=== PATIENT | female | born 1985 | race Caucasian/White ===

== ENCOUNTER 2018-08-17 05:46 | Inpatient (IN) ==
--- NOTE | 2018-08-16 16:16 | History and Physical Report ---
DATE OF ADMISSION: 08/17/2018 ADMITTING DIAGNOSES: 1. Term . 2. Previous section. 3. Maternal drug dependence, Subutex. ADMISSION HISTORY: The patient is a 33-year-old 2, para 1 with an EDC of 21 August by first trimester ultrasound, who is admitted for an elective repeat section. The patient's first was a primary section for failure to progress. She had been counseled about the risks and benefits of a repeat section versus trial of labor and the patient has opted for repeat section. The patient has been followed during this for the use of Subutex. She had a drug screen at 20 weeks gestational age, which was positive for marijuana. The patient is maintained on Subutex 8 mg p.o. b.i.d. PAST MEDICAL HISTORY: OB: As above. 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 MEDICAL: As above. SURGICAL: Cholecystectomy, section. ALLERGIES: AMOXICILLIN. SOCIAL HISTORY: Positive for smoking. FAMILY HISTORY: Noncontributory. REVIEW OF SYSTEMS: As per HPI. ADMISSION PHYSICAL EXAMINATION: GENERAL: Shows a gravid female in no acute distress. VITAL SIGNS: Blood pressure of 126/84 and weight 186 pounds. HEENT: Unremarkable. NECK: Supple. LUNGS: Clear. HEART: With a regular rhythm and rate. ABDOMEN: Gravid, vertex, positive heart tones, estimated weight 7.5 pounds. PELVIC: Showed the cervix to be long, thick and closed. EXTREMITIES: Showed no deep calf tenderness. NEUROLOGIC: Grossly intact. IMPRESSION: A 33-year-old 2, para 1, 39+ weeks gestational age for an elective repeat section. PLAN: Risks, benefits and alternatives to the surgery have been discussed, while benefits will be delivery of the baby, the risks are bleeding, infection, inadvertent injury to bowel or bladder. The patient understands this. The patient understands a drug screen will be performed on admission for her history of Subutex use. All questions answered of the patient. Permit has been signed and she wishes to proceed.
[~2018-08-17 05:46] MED LIST: LACTATED RINGER'S 1,000 ML IV SCH
--- NOTE | 2018-08-17 05:56 | Anesthesiology Consultation ---
Date of Service August 17, 2018 Assessment & Plan Chart Review Chart Review: Acceptable Risk for Surgery and Patient NOT seen in Pre Admission Testing Consults Requested none ASA ASA2 Proposed Anesthesia Anesthesia Type: Spinal Risk / Benefits Reviewed With: PT / POA / Parent / Guardian, Accepts Plan and Informed Consent Obtained NPO Date Last Intake of Fluids: 08/16/18 Time Last Intake of Fluids: 23:30 Date Last Intake of Solids: 08/16/18 Time Last Intake of Solids: 21:00 History Surgery Operation Date: 08/17/18 07:30 Proposed Procedures p Section - Tremaine German Jr, MD, FACOG Height/Weight Height: 1.68 m Weight: 83.915 kg Allergies Allergy/AdvReac Type Severity Reaction Status Date / Time amoxicillin Allergy Mild RASH Verified 07/25/18 14:59 Medications Home Medications Medication Instructions Recorded Confirmed Last Taken 1 tab PO QAM 07/25/18 07/25/18 Unknown buprenorphine-naloxone [Suboxone] 2 film BUCCAL BID 07/25/18 07/25/18 Unknown iron 1 tab PO QAM 07/25/18 07/25/18 Unknown Past Medical History Medical History Anemia GERD (gastroesophageal reflux disease) Kidney stones Denies having any CP, SOB, GERD symptoms, n/v Denies taking any anticoagulant or having h/o major bleeding disorder Past Surgical History Surgical History History of section History of cholecystectomy History of colonoscopy Past Anesthesia History No Hx of Anesthesia Complications and No Family Hx of Anesthesia Complications History of PONV No Motion Sickness Screening History of Motion Sickness: No Social History Smoking Status: Current every day smoker tobacco type: cigarettes Smoking cigarettes per day: 2 CIG PER DAY Do You Dip or Chew Tobacco: No Hx Alcohol Use: No Hx Substance Use: Yes substance use type: former substance user Substance Use Type Other:: History of narcotic use in the past. Has been on sebaxone for 7 years Exercise / Class Metabolic Activity II 4-5 Yardwork/Stairs/Walk up hill Physical Exam Vital Signs Last Vital Signs Temp 36.7 C 08/17/18 05:34 Resp 20 08/17/18 05:34 ENMT Mouth: no TMJ abnormality and no TMJ clicking Thyromental Distance: > or= 3.5 Finger Breadths Mallampati Class: II Neck normal visual inspection; neck extension not limited Respiratory Auscultation: lungs clear to auscultation bilaterally Cardiovascular Rate/Rhythm: regular rate and regular rhythm Musculoskeletal Spine: normal cervical ROM and no pain with cervical ROM Psychiatric Orientation: alert and oriented x 3 Testing Laboratory Results 08/17/18 05:55
[2018-08-17] MEDS ORDERED: CEFAZOLIN 2000MG 2,000 MG/15 ML SYR IV ONE (06:00)
[2018-08-17] MEDS ORDERED: CITRIC ACID/SODIUM CITRATE 15 ML UDC PO SCH (06:00)
[2018-08-17 06:10] LABS: Basophils # (auto) 0.03 K/uL (0-0.2); Basophils % (auto) 0.2 %; Eosinophils # (auto) 0.46 K/uL (0-0.5); Eosinophils % (auto) 3.2 %; Hematocrit (blood only) 31.5 % (37-47); Hemoglobin 10.8 g/dL (12.0-16.0); Immature Granulocytes # (auto) 0.05 K/uL (0.00-0.02); Immature Granulocytes % (auto) 0.4 %; Lymphocytes # (auto) 3.93 K/uL (1.2-3.4); Lymphocytes % (auto) 27.8 %; Mean Corpuscular Volume 89.2 fL (80-100); Mean Platelet Volume 10.4 fL (7.4-10.4); Monocytes % (auto) 9.2 %; Neutrophils # (auto) 8.39 K/uL (1.4-6.5); Neutrophils % (auto) 59.2 %; Platelet Count 280 K/uL (130-400); RDW Coefficient of Variation 13.6 % (11.5-14.5); RDW Standard Deviation 44.3 fL (36.4-46.3); Red Blood Count 3.53 M/uL (4.2-5.4); White Blood Count 14.16 K/uL (4.8-10.8)
[2018-08-17 06:25] LABS: Mean Corpuscular Hgb Conc 34.3 g/dL (32-36)
[2018-08-17] MEDS ORDERED: OXYTOCIN 10 UNITS/ML VIAL ONE ×3 (06:43)
[2018-08-17] MEDS ORDERED: PHENYLEPHRINE 100MCG/ML 5ML SYR IV PRN (06:57)
[2018-08-17] MEDS ORDERED: PROMETHAZINE HCL 12.5 MG in SODIUM CHLORIDE 0.9% 50 ML IV PRN (06:57)
[2018-08-17] MEDS ORDERED: ePHEDrine sulfate 50 MG/ML AMP IV PRN ×2 (06:57→07:39)
[2018-08-17] MEDS ORDERED: ONDANSETRON INJ 2 MG/ML 2 ML VIAL IV PRN (06:57)
[2018-08-17] MEDS ORDERED: ATROPINE SULFATE 0.1 MG/ML 10ML SYR IV PRN (06:57)
[2018-08-17] MEDS ORDERED: fentaNYL citrate 100 MCG/2 ML VIAL IV PRN (06:57)
[2018-08-17] MEDS ORDERED: MoRPHine SULFATE PF 1 MG/ML 10 ML AMP/VIAL ONE (06:58)
[2018-08-17] MEDS ORDERED: fentaNYL citrate 100 MCG/2 ML VIAL ONE (06:58)
--- NOTE | 2018-08-17 07:00 | History & Physical Bridge Note ---
Date of Service August 17, 2018 History & Physical Bridge Note I have examined the patient, reviewed the History & Physical and in the interval since the performance of the History & Physical I have noted the following changes of clinical significance: no changes noted
[2018-08-17] MEDS ORDERED: DiphenhydrAMINE HCL 50 MG/ML VIAL IV PRN ×2 (07:39→08:12)
[2018-08-17] MEDS ORDERED: NALOXONE HCL 0.4 MG/1 ML VIAL/CARP IV PRN (07:39)
[2018-08-17] MEDS ORDERED: NALBUPHINE HCL INJ 10 MG/ML AMP IV PRN (07:39)
[2018-08-17] MEDS ORDERED: MoRPHine SULFATE 2 MG/ML CARP IV PRN (07:39)
[2018-08-17] MEDS ORDERED: NALOXONE HCL 0.08 MG in SYRINGE 1.8 ML IV PRN (07:39)
[2018-08-17] MEDS ORDERED: MoRPHine SULFATE PF 1 MG/ML 10 ML AMP/VIAL INT SPINAL ONE (07:39)
[2018-08-17] MEDS ORDERED: MEPERIDINE HCL 25 MG/ML CARP IV PRN (07:39)
[2018-08-17] MEDS ORDERED: NALOXONE HCL 1 MG in SODIUM CHLORIDE 0.9% 1000ML 1,000 ML IV PRN (07:39)
[2018-08-17] MEDS ORDERED: LACTATED RINGER'S 500 ML IV PRN (07:39)
[2018-08-17] MEDS ORDERED: NO NARCOTICS OR SEDATIVES SCH (07:45)
[2018-08-17] MEDS ORDERED: SODIUM CHLORIDE 0.9% 1000ML 1,000 ML IV SCH (07:45)
[2018-08-17] MEDS ORDERED: DC INTRASPINAL MORPHINE SCH (07:45)
[2018-08-17] MEDS ORDERED: PHENYLEPHRINE HCL 10 MG/ML VIAL ONE (07:57)
[2018-08-17] MEDS ORDERED: ePHEDrine sulfate 50 MG/ML AMP ONE (07:57)
[2018-08-17] MEDS ORDERED: HYDROCORTISONE ACETATE 25 MG SUPP PR PRN (08:12)
[2018-08-17] MEDS ORDERED: DIPHTHERIA/TETANUS/PERTUSSIS 0.5 ML SYR/VIAL IM ONE (08:12)
[2018-08-17] MEDS ORDERED: SUPERCREAM 0.870% 15 GM JAR EXT PRN (08:12)
[2018-08-17] MEDS ORDERED: BENZOCAINE 20% AER SPR 82.5 GM CAN EXT PRN (08:12)
--- NOTE | 2018-08-17 08:18 | Post Operative Brief Note ---
Immediate Post Op Note v1 Date of Surgery August 17, 2018 Pre & Post Diagnosis Operation Date: 08/17/18 07:30 Pre-Op Diagnosis: Term with previous caesarean Section, requests repest caesarean Post-Op Diagnosis: Term with previous caesarean Section, requests repest caesarean Procedure Operation Date: 08/17/18 07:30 <No data on this case meets the specified criteria> Surgeon Tremaine German Jr, MD, FACOG Chalk Tester Larry Shirley Estimated Blood Loss 800 Findings See Below (viable male infant, Apgars 9/9, weight of 7lbs 13ozs; cord gasses pending, normal appearing tubes and ovaries bilaterally) Drains Phan Catheter
[2018-08-17] MEDS: OXYTOCIN 20 UNITS in LACTATED RINGER'S 1,000 ML IV SCH ×2 (08:43→17:21)
[2018-08-17 08:44] LABS: Base Excess Cord Arterial Bld -1.2 mEq/L (-9-1.8); CO2 Cord Arterial Blood 65 mmHg (39.1-73.5); HCO3 Cord Arterial Blood 28 mmol/L (19.7-28.5); pH Cord Arterial Blood 7.25 (7.1-7.38)
[2018-08-17 08:47] LABS: Base Excess Cord Venous Blood -0.2 mEq/L (-7.7-1.9); Cord Venous Blood HCO3 25 mmol/L (18.4-26.8); Cord Venous Blood PCO2 43 mmHg (30.4-57.2); Cord Venous Blood PO2 33 mmHg (14.1-43.3); Cord Venous Blood pH 7.39 (7.20-7.44)
[2018-08-17] MEDS: KETOROLAC 30 MG/ML VIAL IV PRN ×3 (09:55→20:53)
[2018-08-17 10:44] LABS: Amphetamines+Metham, Urine Neg (Neg); Barbiturates, Urine Neg (Neg); Benzodiazepine, Urine Neg (Neg); Cocaine, Urine Neg (Neg); MDMA (Ecstacy), Urine Neg (Neg); Methadone, Urine Neg (Neg); Opiate, Urine Neg (Neg); Phencyclidine, Urine Neg (Neg)
--- NOTE | 2018-08-17 12:25 | Anesthesiology Progress Note ---
Date of Service August 17, 2018 Anesthesia Post Procedure Vital Signs Vital Signs: Temp Pulse Pulse Resp BP BP Pulse Ox 08/17/18 11:00 36.7 C 75 20 130/65 98 08/17/18 10:58 74 100 08/17/18 10:56 67 119/55 L 08/17/18 10:54 68 115/55 L 08/17/18 10:53 76 99 08/17/18 10:48 69 97 08/17/18 10:46 70 113/58 L 08/17/18 10:43 81 99 08/17/18 10:38 67 99 08/17/18 10:36 78 111/61 08/17/18 10:33 75 98 08/17/18 10:28 80 99 08/17/18 10:26 63 106/58 L 08/17/18 10:23 66 99 08/17/18 10:18 62 100 08/17/18 10:16 134 H 117/55 L 08/17/18 10:13 64 99 08/17/18 10:08 67 100 08/17/18 10:06 78 121/60 08/17/18 10:03 77 99 08/17/18 09:58 63 100 08/17/18 09:56 64 106/60 08/17/18 09:53 76 100 08/17/18 09:48 72 100 08/17/18 09:46 80 119/66 08/17/18 09:43 71 100 08/17/18 09:38 81 100 08/17/18 09:36 113 H 107/54 L 08/17/18 09:35 18 08/17/18 09:33 74 99 08/17/18 09:28 69 100 08/17/18 09:27 76 90/35 L 08/17/18 09:25 18 08/17/18 09:23 69 99 08/17/18 09:18 74 99 08/17/18 09:17 90 103/76 08/17/18 09:15 20 08/17/18 09:13 75 99 08/17/18 09:08 73 98 08/17/18 09:06 87 120/71 08/17/18 09:05 18 08/17/18 09:03 83 98 08/17/18 08:58 70 97 08/17/18 08:56 80 124/72 08/17/18 08:55 18 08/17/18 08:53 79 97 08/17/18 08:48 88 97 08/17/18 08:46 84 121/66 08/17/18 08:45 18 08/17/18 08:43 75 97 08/17/18 08:38 92 H 97 08/17/18 08:35 36.4 C L 20 08/17/18 08:33 73 96 08/17/18 08:28 85 129/60 96 08/17/18 07:04 36.6 C 78 20 118/68 08/17/18 05:34 36.7 C 20 Pain Intensity Abdomen: Pain Intensity: 2 Notes Mental Status: alert / awake / arousable Patient Amnestic to Procedure: Yes Nausea / Vomiting: adequately controlled Pain: adequately controlled Airway Patency, RR, SpO2: stable & adequate BP & HR: stable & adequate Neuraxial Anesthesia: was administered and sensory block is resolving Anesthetic Complications: no major complications apparent Notes: Doing well, no complaints. VSS
--- NOTE | 2018-08-17 12:46 | Operative Report ---
DATE OF OPERATION: 08/17/2018 PREOPERATIVE DIAGNOSES: 1. Term . 2. Previous section. 3. Drug use complicating , Subutex. POSTOPERATIVE DIAGNOSES: 1. Term . 2. Previous section. 3. Drug use complicating , Subutex. PROCEDURE PERFORMED: Repeat low cervical transverse section. SURGEON: Tremaine German MD PHERESIS SPECIALIST: Dr. Larry Shirley. ANESTHESIA: Spinal. FINDINGS: Viable male infant with Apgars of 8 and 9, weight of 7 pounds 13 ounces. Arterial and venous cord gases are pending. Normal-appearing tubes and ovaries bilaterally. PROCEDURE IN DETAIL: The patient was taken to the operating room, and after spinal anesthesia, was placed in supine position, draped and prepped in the usual fashion. Pfannenstiel type incision through previous surgical scar was made. Underlying subcutaneous tissue was dissected down to the ventral abdominal fascia, which was nicked and opened in a horizontal manner. Preperitoneal fascia was dissected away until the peritoneal cavity was entered and opened in a vertical manner. Bladder blade was placed and the peritoneum overlying the uterus was elevated, opened in a semi-lunar fashion, the inferior margin of which was taken down creating the bladder flap. The uterus was entered sharply and extended in a semilunar fashion manually, artificial rupture of membranes for clear fluid. Viable male infant was delivered. Cord was clamped and cut. The baby was passed off to pediatrics who was in attendance for the delivery. Cord gases, cord blood samples obtained. Placenta was delivered manually, and the uterus was exteriorized. The uterine cavity was wiped clean of any residual blood tissue and/or clot. The uterine incision was then closed with 2 layers of 4-0 Vicryl, the first a running locking stitch, the second an imbricating stitch. Hemostasis achieved and the uterus was returned to the pelvic cavity. Pericolic gutters were cleared bilaterally of any blood tissue and/or clot. The pelvis was thoroughly irrigated with 1000 mL of warm saline. Uterine incision was inspected for hemostasis again which was present. Sponge and needle count was correct. Rectus muscle was plicated in the midline with a running 2-0 Vicryl stitch. The fascia was closed laterally with a running 0 Vicryl suture. Subcutaneous tissue was irrigated with warm saline and the skin incision was closed with a 4-0 Monocryl subcuticular suture. Sterile dressing was applied. The patient was taken to the recovery room in satisfactory condition. I attest to the content of the Intraoperative Record and any orders documented therein. Any exception s are noted below.
[2018-08-17] MEDS: SIMETHICONE 80 MG CHEW PO SCH ×2 (17:23→20:54)
[2018-08-17] MEDS: BUPRENORPHINE HCL 8 MG SUBL SL SCH (21:00)
[2018-08-18] MEDS ORDERED: KETOROLAC 30 MG/ML VIAL IV PRN (01:40)
[2018-08-18] MEDS ORDERED: DiphenhydrAMINE HCL 50 MG/ML VIAL IV PRN (01:40)
[2018-08-18] MEDS ORDERED: ONDANSETRON INJ 2 MG/ML 2 ML VIAL IV PRN (01:40)
--- NOTE | 2018-08-18 06:52 | Obstetrical Progress Note ---
Date of Service <Mukund Shirley - Last Filed: 08/18/18 06:52> August 18, 2018 Assessment & Plan <Mukund ShirleyDO - Last Filed: 08/18/18 06:52> (1) delivery delivered: 33 y/o who had scheduled repeat @39.3 weeks. complicated by drug use, on Suboxone for opioid substance abuse treatment and with positive drug test for marijuana. O+, GBS- - POD #1 - guo cath was removed this morning, will monitor for any difficulties with urination, do not anticipate problem - continue with routine post-op/ care, encourage ambulation, encourage . (2) Previous delivery affecting , antepartum: scheduled with delivery at 39.3 weeks gestation (3) Drug use complicating : - social service liaison consult placed because of positive urine drug screen in for marijuana; is also on Suboxone for treatment of opioid substance abuse - continue with home medication dose of Suboxone 8mg BID - urine drug screen was ordered on admission and was negative. Subjective <Mukund ShirleyDO - Last Filed: 08/18/18 06:52> Passing Gas:: Yes Diet Tolerance:: regular diet Feeding Type:: breast feeding Jeannette states she is doing well this morning. Her pain has been controlled with non-narcotic analgesics. She had her guo cath removed this morning and has not attempted urination yet. She denies fevers, chills, headache, chest pain, shortness of breath, nausea, vomiting. Physical Exam <Mukund Casper - Last Filed: 08/18/18 06:52> Vital Signs (Past 24 Hours) Last Vital Signs Temp 36.5 C 08/18/18 04:30 Pulse 72 08/18/18 04:30 Resp 18 08/18/18 04:30 BP 111/61 08/18/18 04:30 Pulse Ox 99 08/18/18 04:30 Constitutional WD/WN, vitals as above cooperative and comfortable Eyes + anicteric sclerae and EOM intact bilaterally Neck normal visual inspection and trachea midline Respiratory normal respiratory effort, lungs clear to auscultation Cardiovascular Rate/Rhythm: regular rate and regular rhythm Heart Sounds: no murmur Gastrointestinal (Abdomen) Percussion/Palpation: abdomen soft; abdomen nontender surgical dressing inplace this morning and removed for examination of surgical incision wound. surgical incision wound is well dry, intact, well healing without erythema, warmth or signs of infection Musculoskeletal Head/Neck/Chest: normocephalic and head atraumatic Skin no rashes, warm and dry Neurologic moves all extremities and awake Psychiatric A+Ox3, euthymic affect Results & Data <Mukund Shirley, DO - Last Filed: 08/18/18 06:52> Laboratory Results Laboratory Results - last 24 hr 08/17/18 08/17/18 08/17/18 05:55 07:52 07:52 Cord ABG pH 7.25 Cord ABG pCO2 65 Cord ABG pO2 14.0 Cord ABG HCO3 28 Cord ABG Base Excess -1.2 Cord ABG O2 Sat < 60.0 Cord VBG pH 7.39 Cord VBG pCO2 43 Cord VBG pO2 33 Cord VBG HCO3 25 Cord VBG Base Excess -0.2 Cord VBG O2 Sat 75.0 H Barometric Pressure 739.9 739.9 Blood Gas Comments A INFANT A Urine Opiates Screen Ur Methadone, Qual Urine Barbiturates Ur Phencyclidine (PCP) U Amphetamin/Meth Scrn MDMA (Ecstasy) Screen U Benzodiazepines Scrn Ur Cocaine Metabolite U Marijuana (THC) Screen Blood Type O Positive Antibody Screen NEGATIVE Direct Antiglob Test SHAWN (IgG-AHG) Baby's Blood Type 08/17/18 08/17/18 07:52 08:24 Cord ABG pH Cord ABG pCO2 Cord ABG pO2 Cord ABG HCO3 Cord ABG Base Excess Cord ABG O2 Sat Cord VBG pH Cord VBG pCO2 Cord VBG pO2 Cord VBG HCO3 Cord VBG Base Excess Cord VBG O2 Sat Barometric Pressure Blood Gas Comments Urine Opiates Screen Neg Ur Methadone, Qual Neg Urine Barbiturates Neg Ur Phencyclidine (PCP) Neg U Amphetamin/Meth Scrn Neg MDMA (Ecstasy) Screen Neg U Benzodiazepines Scrn Neg Ur Cocaine Metabolite Neg U Marijuana (THC) Screen Neg Blood Type Antibody Screen Direct Antiglob Test Cancelled SHAWN (IgG-AHG) Cancelled Baby's Blood Type Cancelled Medications Administered Buprenorphine HCl (Subutex) 8 mg SL BID PRAKASH Stop: 09/16/18 20:59 Last Admin: 08/17/18 21:00 Dose: 8 mg Documented by: [id number] Ketorolac Tromethamine (Toradol) 30 mg IV Q6H PRN PRN Reason: Pain Stop: 08/23/18 01:39 Last Admin: 08/18/18 02:59 Dose: 30 mg Documented by: [id number] Simethicone (Mylicon) 80 mg PO QID PRAKASH Stop: 09/16/18 08:59 Last Admin: 08/17/18 20:54 Dose: 80 mg Documented by: [id number] Admin: 08/17/18 17:23 Dose: 80 mg Documented by: [id number] <Tremaine German Jr, MD, FACOG - Last Filed: 08/18/18 07:26> Co-Signing Physician Notes Resident Physician Supervision Note: I was present with Dr. Shirley during the history and exam. I discussed the case with the resident and agree with the findings and plan as documented in the note. Any exceptions or clarifications are listed here: Discussed surgery and findings with patient. Discussed pain management and will use narcotics as ne eded. Documented By: Tremaine German Jr, MD, FACOG
[2018-08-18 07:21] LABS: Basophils # (auto) 0.02 K/uL (0-0.2); Basophils % (auto) 0.2 %; Eosinophils # (auto) 0.47 K/uL (0-0.5); Eosinophils % (auto) 4.1 %; Hematocrit (blood only) 28.2 % (37-47); Hemoglobin 9.5 g/dL (12.0-16.0); Immature Granulocytes # (auto) 0.03 K/uL (0.00-0.02); Immature Granulocytes % (auto) 0.3 %; Lymphocytes % (auto) 29.9 %; Mean Corpuscular Hgb Conc 33.7 g/dL (32-36); Mean Platelet Volume 10.4 fL (7.4-10.4); Monocytes % (auto) 9.7 %; Neutrophils # (auto) 6.34 K/uL (1.4-6.5); Neutrophils % (auto) 55.8 %; Platelet Count 268 K/uL (130-400); RDW Coefficient of Variation 13.6 % (11.5-14.5); RDW Standard Deviation 44.7 fL (36.4-46.3); Red Blood Count 3.17 M/uL (4.2-5.4); White Blood Count 11.36 K/uL (4.8-10.8)
--- NOTE | 2018-08-18 08:34 | Anesthesiology Progress Note ---
Date of Service August 18, 2018 Pt is s/p C Section .Pt has no c/o H/A,Low back pain,or LE numbness,pain or paresthesias. Pt has been up and ambulating w/o incident. Anesthesia Post Procedure Vital Signs Vital Signs: Temp Pulse Pulse Resp BP BP Pulse Ox 08/18/18 04:30 36.5 C 72 18 111/61 99 08/18/18 01:10 16 97 08/18/18 00:30 16 98 08/17/18 23:25 36.8 C 72 18 110/62 99 08/17/18 21:50 20 98 08/17/18 20:50 20 98 08/17/18 20:00 36.6 C 72 20 129/63 98 08/17/18 18:50 20 98 08/17/18 15:50 36.8 C 67 20 103/58 L 98 08/17/18 14:00 18 98 08/17/18 13:00 20 98 08/17/18 12:00 36.6 C 69 18 105/49 L 98 08/17/18 11:00 36.7 C 75 20 130/65 98 08/17/18 10:58 74 100 08/17/18 10:56 67 119/55 L 08/17/18 10:54 68 115/55 L 08/17/18 10:53 76 99 08/17/18 10:48 69 97 08/17/18 10:46 70 113/58 L 08/17/18 10:43 81 99 08/17/18 10:38 67 99 08/17/18 10:36 78 111/61 08/17/18 10:33 75 98 08/17/18 10:28 80 99 08/17/18 10:26 63 106/58 L 08/17/18 10:23 66 99 08/17/18 10:18 62 100 08/17/18 10:16 134 H 117/55 L 08/17/18 10:13 64 99 08/17/18 10:08 67 100 08/17/18 10:06 78 121/60 08/17/18 10:03 77 99 08/17/18 09:58 63 100 08/17/18 09:56 64 106/60 08/17/18 09:53 76 100 08/17/18 09:48 72 100 08/17/18 09:46 80 119/66 08/17/18 09:43 71 100 08/17/18 09:38 81 100 08/17/18 09:36 113 H 107/54 L 08/17/18 09:35 18 08/17/18 09:33 74 99 08/17/18 09:28 69 100 08/17/18 09:27 76 90/35 L 08/17/18 09:25 18 08/17/18 09:23 69 99 08/17/18 09:18 74 99 08/17/18 09:17 90 103/76 08/17/18 09:15 20 08/17/18 09:13 75 99 08/17/18 09:08 73 98 08/17/18 09:06 87 120/71 08/17/18 09:05 18 08/17/18 09:03 83 98 08/17/18 08:58 70 97 08/17/18 08:56 80 124/72 08/17/18 08:55 18 08/17/18 08:53 79 97 08/17/18 08:48 88 97 08/17/18 08:46 84 121/66 08/17/18 08:45 18 08/17/18 08:43 75 97 08/17/18 08:38 92 H 97 08/17/18 08:35 36.4 C L 20 08/17/18 08:33 73 96 Pain Intensity Abdomen: Pain Intensity: 5
[2018-08-18] MEDS: IBUPROFEN 600 MG TAB PO PRN ×4 (08:48→20:49)
[2018-08-18] MEDS: PRENATAL VITAMIN 1 TAB PO SCH (08:49)
[2018-08-18] MEDS: SIMETHICONE 80 MG CHEW PO SCH ×4 (08:49→20:46)
[2018-08-18] MEDS: FERROUS SULFATE 325 MG TAB PO SCH (08:49)
[2018-08-18] MEDS: BUPRENORPHINE HCL 8 MG SUBL SL SCH ×2 (08:57→20:46)
[2018-08-18] MEDS ORDERED: BUPRENORPHINE/NALOXONE 8/2 MG TAB SL SCH (09:00)
[2018-08-18] MEDS: MAGNESIUM HYDROXIDE SUSP 30 ML UDC PO SCH (20:46)
[2018-08-18] MEDS: SENNA 8.6 MG TAB PO SCH (20:46)
[2018-08-19] MEDS: IBUPROFEN 600 MG TAB PO PRN ×5 (04:03→21:39)
[2018-08-19 06:43] LABS: Hematocrit (blood only) 27.2 % (37-47); Hemoglobin 9.3 g/dL (12.0-16.0)
[2018-08-19] MEDS ORDERED: ACETAMINOPHEN 500 MG TAB PO PRN (07:44)
--- NOTE | 2018-08-19 07:47 | Obstetrical Progress Note ---
Date of Service August 19, 2018 Assessment & Plan (1) delivery delivered: POD#2 doing well. For pain, doing ok with motrin. No narcotics ordered per patient request. Continue motrin, subutex. Added tylenol in case patient feels she needs something else. Continue routine postop care. Day #:: 2 Subjective Ambulation: ambulating normally Voiding: no voiding problems Passing Gas:: Yes Diet Tolerance:: regular diet Lochia:: Moderate Feeding Type:: breast feeding Doing well, pain controlled with motrin. Review of Systems All systems reviewed & are unremarkable except as noted in HPI & below Physical Exam Vital Signs (Past 24 Hours) Last Vital Signs Temp 36.7 C 08/19/18 07:40 Pulse 67 08/19/18 07:40 Resp 20 08/19/18 07:40 BP 120/66 08/19/18 07:40 Pulse Ox 100 08/18/18 16:45 Gen: AAOx3 NAD CV: RRR L: CTA Abd: soft, NTTP. Incision CDI Ext: no edema, no calf tenderness
[2018-08-19] MEDS: PRENATAL VITAMIN 1 TAB PO SCH ×2 (08:24→10:11)
[2018-08-19] MEDS: SIMETHICONE 80 MG CHEW PO SCH ×6 (08:25→21:41)
[2018-08-19] MEDS: FERROUS SULFATE 325 MG TAB PO SCH ×2 (08:25→10:10)
[2018-08-19] MEDS: BUPRENORPHINE HCL 8 MG SUBL SL SCH ×2 (08:46→21:39)
[2018-08-19] MEDS: MAGNESIUM HYDROXIDE SUSP 30 ML UDC PO SCH ×2 (10:12→21:43)
[2018-08-19] MEDS: SENNA 8.6 MG TAB PO SCH ×2 (10:12→21:40)
--- NOTE | 2018-08-20 07:10 | Obstetrical Progress Note ---
Date of Service <Mukund Shirley DO - Last Filed: 08/20/18 07:35> August 20, 2018 Assessment & Plan <Mukund Shirley DO - Last Filed: 08/20/18 07:35> (1) delivery delivered: 33 y/o who had scheduled repeat @39.3 weeks. complicated by drug use, on Suboxone for opioid substance abuse treatment and with positive drug test for marijuana. O+, GBS- - POD #3 - continue with routine post-op/ care, encourage ambulation, encourage . - will be transferred to [facility] status upon discharge (2) Previous delivery affecting , antepartum: scheduled with delivery at 39.3 weeks gestation (3) Drug use complicating : - pediatric social worker consult placed because of positive urine drug screen in for marijuana; is also on Suboxone for treatment of opioid substance abuse - continue with home medication dose of Suboxone 8mg BID - urine drug screen was ordered on admission and was negative. Subjective <DO Juliann Garces Last Filed: 08/20/18 07:35> Ambulation: ambulating normally Voiding: no voiding problems Passing Gas:: Yes Diet Tolerance:: regular diet Lochia:: Small Feeding Type:: breast feeding Jeannette is doing well without any acute concerns. She denies fever, chills, chest pain, nausea, vomiting, headache. She notes her pain is well controlled with Tylenol and Motrin. She denies need for narcotic prescription on discharge. She would like to be transferred to [facility] status whenever she is cleared for discharge home. Physical Exam <DO Juliann Garces Last Filed: 08/20/18 07:35> Vital Signs (Past 24 Hours) Last Vital Signs Temp 36.8 C 08/19/18 23:30 Pulse 73 08/19/18 23:30 Resp 18 08/19/18 23:30 BP 116/69 08/19/18 23:30 Pulse Ox 99 08/19/18 15:45 Constitutional WD/WN, vitals as above cooperative and comfortable Eyes + anicteric sclerae and EOM intact bilaterally Neck normal visual inspection and trachea midline Respiratory normal respiratory effort, lungs clear to auscultation Cardiovascular Rate/Rhythm: regular rate and regular rhythm Heart Sounds: no murmur Gastrointestinal (Abdomen) Percussion/Palpation: abdomen soft; abdomen nontender surgical incision wound is well healing, clean, dry, intact, without erythema or signs of infection. Uterine fundus is firm, non-tender, 3cm inferior to umbilicus. Musculoskeletal Head/Neck/Chest: normocephalic and head atraumatic Skin no rashes, warm and dry Neurologic moves all extremities and awake Psychiatric A+Ox3, euthymic affect Results & Data <Mukund Shirley DO - Last Filed: 08/20/18 07:35> Medications Administered Buprenorphine HCl (Subutex) 8 mg SL BID PRAKASH Stop: 09/16/18 20:59 Last Admin: 08/19/18 21:39 Dose: 8 mg Documented by: [id number] Admin: 08/19/18 08:46 Dose: 8 mg Documented by: [id number] Admin: 08/18/18 20:46 Dose: 8 mg Documented by: [id number] Admin: 08/18/18 08:57 Dose: 8 mg Documented by: [id number] Admin: 08/17/18 21:00 Dose: 8 mg Documented by: [id number] Ferrous Sulfate (Feosol) 325 mg PO QAM PRAKASH Stop: 09/16/18 08:59 Last Admin: 08/19/18 10:10 Dose: Not Given Documented by: [id number] Admin: 08/19/18 08:25 Dose: 325 mg Documented by: [id number] Admin: 08/18/18 08:49 Dose: 325 mg Documented by: [id number] Ibuprofen (Motrin) 600 mg PO Q4H PRN PRN Reason: Pain Stop: 09/16/18 08:11 Last Admin: 08/19/18 21:39 Dose: 600 mg Documented by: [id number] Admin: 08/19/18 16:07 Dose: 600 mg Documented by: [id number] Admin: 08/19/18 12:23 Dose: 600 mg Documented by: [id number] Admin: 08/19/18 08:25 Dose: 600 mg Documented by: [id number] Admin: 08/19/18 04:03 Dose: 600 mg Documented by: [id number] Admin: 08/18/18 20:49 Dose: 600 mg Documented by: [id number] Admin: 08/18/18 16:56 Dose: 600 mg Documented by: [id number] Admin: 08/18/18 12:56 Dose: 600 mg Documented by: [id number] Admin: 08/18/18 08:48 Dose: 600 mg Documented by: [id number] Ketorolac Tromethamine (Toradol) 30 mg IV Q6H PRN PRN Reason: Pain Stop: 08/23/18 01:39 Last Admin: 08/18/18 02:59 Dose: 30 mg Documented by: [id number] Magnesium Hydroxide (Milk Of Magnesia) 30 ml PO [facility] Stop: 09/16/18 20:59 Last Admin: 08/19/18 21:43 Dose: Not Given Documented by: [id number] Admin: 08/19/18 10:12 Dose: Not Given Documented by: [id number] Admin: 08/18/18 20:46 Dose: Not Given Documented by: [id number] Prenat Multivit/Mccaskill/Iron/Folic Ac ( Vitamin) 1 tab PO QAM [facility] Stop: 09/16/18 08:59 Last Admin: 08/19/18 10:11 Dose: Not Given Documented by: [id number] Admin: 08/19/18 08:24 Dose: 1 tab Documented by: [id number] Admin: 08/18/18 08:49 Dose: 1 tab Documented by: [id number] Sennosides (Senokot) 17.2 mg PO [facility] Stop: 09/16/18 20:59 Last Admin: 08/19/18 21:40 Dose: 17.2 mg Documented by: [id number] Admin: 08/19/18 10:12 Dose: Not Given Documented by: [id number] Admin: 08/18/18 20:46 Dose: Not Given Documented by: [id number] Simethicone (Mylicon) 80 mg PO QID [facility] Stop: 09/16/18 08:59 Last Admin: 08/19/18 21:41 Dose: 80 mg Documented by: [id number] Admin: 08/19/18 17:43 Dose: 80 mg Documented by: [id number] Admin: 08/19/18 14:45 Dose: 80 mg Documented by: [id number] Admin: 08/19/18 10:13 Dose: Not Given Documented by: [id number] Admin: 08/19/18 10:11 Dose: Not Given Documented by: [id number] Admin: 08/19/18 08:25 Dose: 80 mg Documented by: [id number] Admin: 08/18/18 20:46 Dose: 80 mg Documented by: [id number] Admin: 08/18/18 17:05 Dose: 80 mg Documented by: [id number] Admin: 08/18/18 12:57 Dose: 80 mg Documented by: [id number] Admin: 08/18/18 08:49 Dose: 80 mg Documented by: [id number] Admin: 08/17/18 20:54 Dose: 80 mg Documented by: [id number] Admin: 08/17/18 17:23 Dose: 80 mg Documented by: [id number] <Farida Oden, DO - Last Filed: 08/20/18 07:42> Co-Signing Physician Notes I have seen/examined patient. I have read above note performed by resident and I agree with above. Any changes/additions are as follows: POD#3 doing well. Pain controlled, declines narcotics. Plan for DC tomorrow. Mom will then go to nesting status. Farida Oden DO [facility] [place] [facility]
[2018-08-20] MEDS: BUPRENORPHINE HCL 8 MG SUBL SL SCH ×2 (08:35→20:58)
[2018-08-20] MEDS: IBUPROFEN 600 MG TAB PO PRN ×3 (08:35→20:58)
[2018-08-20] MEDS: PRENATAL VITAMIN 1 TAB PO SCH (08:36)
[2018-08-20] MEDS: FERROUS SULFATE 325 MG TAB PO SCH (08:36)
[2018-08-20] MEDS: SIMETHICONE 80 MG CHEW PO SCH ×3 (08:36→21:00)
[2018-08-20] MEDS: SENNA 8.6 MG TAB PO SCH (21:00)
[2018-08-20] MEDS: MAGNESIUM HYDROXIDE SUSP 30 ML UDC PO SCH (21:00)
--- NOTE | 2018-08-21 08:33 | Discharge Summary ---
ADMITTING DIAGNOSES: 1. Term . 2. Previous section. 3. Maternal drug dependence, Subutex. DISCHARGE DIAGNOSES: 1. Term . 2. Previous section. 3. Maternal drug dependence, Subutex. PROCEDURES PERFORMED: Repeat low cervical transverse section. DISCHARGE MEDICATIONS: Subutex 8 mg p.o. b.i.d. ADMISSION HISTORY: The patient is a 33-year-old 2, para 1 with an EDC of 21 August by first trimester ultrasound who is admitted for an elective repeat section. The patient's first was a primary section for failure to progress. She had been counseled on the risks and benefits of repeat versus a trial of labor and the patient has opted for the repeat . The patient has been followed during this for the use of Subutex. She had a drug screen at 20 weeks gestational age, which was positive for marijuana. She is maintained on Subutex 8 mg p.o. b.i.d. ADMISSION PHYSICAL EXAMINATION: GENERAL: Showed a gravid female in no acute distress. VITAL SIGNS: Blood pressure 126/84 and weight of 186 pounds. HEENT: Unremarkable. NECK: Supple. LUNGS: Clear. HEART: With a regular rhythm and rate. ABDOMEN: Gravid, vertex, positive heart tones, estimated weight of 7-1/2 pounds. PELVIC: Showed the cervix to be long, thick and closed. EXTREMITIES: Showed no deep calf tenderness. NEUROLOGICAL: Grossly intact. ADMISSION LABORATORY VALUES: Showed an H and H of 10.8 and 31.5. Urine toxicology screen was negative. HOSPITAL COURSE: On day of admission, the patient was taken to the operating room. She underwent the above-listed procedures. Operative findings showed a viable male infant with Apgars of 8 and 9, and weight of 7 pounds 13 ounces, normal appearing tubes and ovaries bilaterally. Postoperatively, the patient did well. Phan catheter was removed on the first postoperative day. The patient's Subutex was reinitiated and she was able to be maintained on pain control without the use of narcotics. Social service consult was obtained because of the history and outpatient followup has been arranged. The patient was discharged home on the third postoperative day with the routine discharge instructions. She will follow up in the office in 2 weeks' time for a postoperative check, but as always she was instructed to call with any questions, problems or difficulties.
== END 2018-08-20 21:00 | disposition home or self-care (01) | DRG 787 ==
LOC: 4S1 05:46 → EDSTATUS 07:30 → 4S2 11:00